=== PATIENT | female | born 1945 | race Caucasian/White ===

== ENCOUNTER 2017-07-10 14:54 | Inpatient (IN) ==
[2017-07-10] MEDS ORDERED: FentaNYL 100 MCG/2 ML INJECTION IVP ONE (15:04)
[2017-07-10] MEDS ORDERED: ONDANSETRON 4 MG/2 ML INJECTION IVP ONE (15:04)
--- OUTSIDE RECORDS SUMMARY | 2017-07-10 15:04 | External Medical Summary | Referral Summary ---
:1945 Author Organization [facility], [facility] Address [address] [place] [address] [place] [address] Care Team Providers Name Role Phone Hayden Kerr Primary Care Physician Encounter [facility] [id number] Date(s): 05/15/15 - 05/15/15 [facility] [address] [place] [address]- [place] Discharge Disposition: 01-Home or Self Care Attending Physician: Hayden Kerr MD Admitting Physician: Hayden Kerr MD Vital Signs Most recent to oldest [Reference Range]: 1 Blood Pressure [90-140/60-90 mmHg] 100/60 mmHg (05/15/15 8:09 AM) Problem List Condition Effective Dates Status Health Status Informant Allergies(Confirmed) Active Thyroid disease(Confirmed) Active Hypothyroidism(Confirmed) Active OP (osteoporosis) - Dr. Hilliard Active manages(Confirmed) Allergies, Adverse Reactions, Alerts No Known Allergies Medications Imodium A-D 2 mg, Oral, PRN every other day., 0 Refill(s) Start Date: 11/21/14 Status: Orderedlevothyroxine 75 mcg (0.075 mg) oral tablet 75 mcg 1 tabs, Oral, Daily, X 90 days, # 90 tabs, 1 Refill(s), Pharmacy: [facility], 1 tabs Oral Daily,x90 days Start Date: 05/15/15 Stop Date: 11/11/15 Status: OrderedProbiotic Formula 1 caps, Oral, Daily, 0 Refill(s) Start Date: 11/21/14 Status: Ordered Results Hematology Most recent to oldest [Reference Range]: 1 WBC [4.8-10.8 10*3/uL] 4.0 10*3/uL *LOW* (05/15/15 8:38 AM) RBC [4.00-5.20] 4.07 (05/15/15 8:38 AM) Hgb [12.0-16.0 gm/dL] 13.4 gm/dL (05/15/15 8:38 AM) Hct [37.0-47.0 %] 38.8 % (05/15/15 8:38 AM) MCV [82.0-99.0 fL] 95.3 fL (05/15/15 8:38 AM) MCH [27.0-32.0 pg] 32.9 pg *HI* (05/15/15 8:38 AM) MCHC [32.0-36.0 gm/dL] 34.5 gm/dL (05/15/15 8:38 AM) RDW [11.5-14.5 %] 12.2 % (05/15/15 8:38 AM) Platelet [150-400 10*3/uL] 278 10*3/uL (05/15/15 8:38 AM) MPV [8.8-14.8 fL] 9.5 fL (05/15/15 8:38 AM) Immature Granulocytes [0.0-1.0 %] 0.0 % (05/15/15 8:38 AM) Neutrophils [51-75 %] 39 % *LOW* (05/15/15 8:38 AM) Lymphocytes [20-46 %] 43 % (05/15/15 8:38 AM) Monocytes [4-11 %] 13 % *HI* (05/15/15 8:38 AM) Eosinophils [0-4 %] 4 % (05/15/15 8:38 AM) Basophils [0-2 %] 1 % (05/15/15 8:38 AM) Neutro Absolute [1.90-7.00 10*3] 1.56 10*3 *LOW* (05/15/15 8:38 AM) Lymph Absolute [0.80-3.30 10*3] 1.70 10*3 (05/15/15 8:38 AM) [place] Absolute [0.30-1.00 10*3] 0.52 10*3 (05/15/15 8:38 AM) Eos Absolute [0.00-0.50 10*3] 0.15 10*3 (05/15/15 8:38 AM) Baso Absolute [0.00-0.20 10*3] 0.03 10*3 (05/15/15 8:38 AM) Chemistry Most recent to oldest [Reference Range]: 1 Sodium Lvl [135-144 mEq/L] 141 mEq/L (05/15/15 8:38 AM) Potassium Lvl [3.5-5.2 mEq/L] 4.0 mEq/L (05/15/15 8:38 AM) Chloride [99-111 mEq/L] 105 mEq/L (05/15/15 8:38 AM) CO2 [22-31 mEq/L] 29 mEq/L (05/15/15 8:38 AM) AGAP [3-20] 7 (05/15/15 8:38 AM) BUN [10-20 mg/dL] 18 mg/dL (05/15/15 8:38 AM) Glucose Lvl [70-99 mg/dL] 105 mg/dL *HI* (05/15/15 8:38 AM) Creatinine Lvl [0.57-1.11 mg/dL] 0.84 mg/dL (05/15/15 8:38 AM) eGFR [>60 mL/min] >60 mL/min 1 (05/15/15 8:38 AM) Calcium Lvl [8.9-10.5 mg/dL] 9.4 mg/dL (05/15/15 8:38 AM) Albumin Lvl [3.4-4.8 gm/dL] 4.0 gm/dL (05/15/15 8:38 AM) Total Protein [6.2-8.1 gm/dL] 6.6 gm/dL (05/15/15 8:38 AM) Globulin [1.8-4.0 gm/dL] 2.6 gm/dL (05/15/15 8:38 AM) ALT [0-55 U/L] 25 U/L (05/15/15 8:38 AM) AST [5-34 U/L] 26 U/L (05/15/15 8:38 AM) Alk Phos [40-150 U/L] 56 U/L (05/15/15 8:38 AM) Bili Total [0.2-1.2 mg/dL] 0.6 mg/dL (05/15/15 8:38 AM) Chol [0-199 mg/dL] 233 mg/dL *HI* (05/15/15 8:38 AM) Trig [0-149 mg/dL] 80 mg/dL (05/15/15 8:38 AM) HDL [40-84 mg/dL] 67 mg/dL (05/15/15 8:38 AM) LDL [0-130 mg/dL] 150 mg/dL *HI* (05/15/15 8:38 AM) VLDL Cholesterol [0-28 mg/dL] 16 mg/dL (05/15/15 8:38 AM) Cardiac Risk [0.0-5.0] 3.5 (05/15/15 8:38 AM) TSH with Reflex Free T4 [0.35-4.94] 1.35 (05/15/15 8:38 AM) 1Result Comment: Multiply eGFR results by 1.21 for race. Immunizations No data available for this section Procedures Procedure Date Related Diagnosis Body Site Biopsy of breast1 Colonoscopy normal CS - section Thumb 1L breast Social History Social History Type Response Smoking Status Never smoker Assessment and Plan Extracted from: Title: Ambulatory Patient Education Author: Hayden Kerr MD Date: Family Medicine Hypothyroidism Hypothyroidism is a disorder of the thyroid. The thyroid is a large gland that is located in the lower front of the neck. The thyroid releases hormones that control how the body works. With hypothyroidi sm, the thyroid does not make enough of these hormones. CAUSES Causes of hypothyroidism may include: Viral infections. . Your own defense system (immune system) attacking your thyroid. Certain medicines. defects. Past radiation treatments to your head or neck. Past treatment with radioactive iodine. Past surgical removal of part or all of your thyroid. Problems with the gland that is located in the center of your brain ( pituitary). SIGNS AND SYMPTOMS Signs and symptoms of hypothyroidism may include: Feeling as though you have no energy (lethargy). Inability to tolerate cold. Weight gain that is not explained by a change in diet or exercise habits. Dry skin. Coarse hair. Menstrual irregularity. Slowing of thought processes. Constipation. Sadness or depression. DIAGNOSIS Your health care provider may diagnose hypothyroidism with blood tests and ultrasound tests. TREATMENT Hypothyroidism is treated with medicine that replaces the hormones that your body does not make. After you begin treatment, it may take several weeks for symptoms to go away. HOME CARE INSTRUCTIONS Take medicines only as directed by your health care provider. If you start taking any new medicines, tell your health care provider. Keep all follow-up visits as directed by your health care provider. This is important. As your condition improves, your dosage needs may change. You will need to have blood tests regularly so rishi t your health care provider can watch your condition. SEEK MEDICAL CARE IF: Your symptoms do not get better with treatment. You are taking thyroid replacement medicine and: You sweat excessively. You have tremors. You feel anxious. You lose weight rapidly. You cannot tolerate heat. You have emotional swings. You have diarrhea. You feel weak. SEEK IMMEDIATE MEDICAL CARE IF: You develop chest pain. You develop an irregular heartbeat. You develop a rapid heartbeat. This information is not intended to replace advice given to you by your health care provider. Make sure you discuss any questions you have with your health care provider. Document Released: 02/27/2006 Document Revised: 12/16/2014 Document Reviewed: 07/15/2014 [employer] Patient Information 2015 [employer]. No follow up information was provided. Extracted from: Title: Office Visit Note Author: Hayden Kerr MD Date: 05/15/15 Assessment/Plan Allergies This issue was reviewed, appears stable, and current therapy continued except as mentioned. Appropriate lab was reviewed from the most recent appropriate entry and lab was ordered if neede d in the cpoe/nursing orders, and follow up recommended generally in 90 days and no later then six months. Needs colonoscopy for screening. Hypothyroidism This issue was reviewed, appears stable, and current therapy continued except as mentioned. Appropriate lab was reviewed from the most recent appropriate entry and lab was ordered if needed in the cpoe/nursing orders, and follow up recommended generally in 90 days and no later then six months. Lab reviewed and lab pending. OP (osteoporosis) - Dr. Hilliard manages This issue was reviewed, appears stable , and current therapy continued except as mentioned. Appropriate lab was reviewed from the most recent appropriate entry a nd lab was ordered if needed in the cpoe/nursing orders, and follow up recommended generally in 90 days and no later then six months. Has had reclast in the past.
--- OUTSIDE RECORDS SUMMARY | 2017-07-10 15:04 | External Medical Summary | Referral Summary ---
:1945 Author Organization [facility] [address] [place] [address] Care Team Providers Name Role Phone Hayden Kerr Primary Care Physician Encounter [facility] [id number] Date(s): 11/10/16 - 11/10/16 [facility] [address] [place] [address] Discharge Diagnosis: OP (osteoporosis) - Dr. Hilliard manages Discharge Diagnosis: Hypothyroidism Discharge Diagnosis: N&V (nausea and vomiting) Discharge Diagnosis: Abnormal blood sugar Discharge Diagnosis: Thyroid disease Discharge Diagnosis: Hyperlipidemia Discharge Disposition: 01-Home or Self Care Attending Physician: Hayden Kerr MD Admitting Physician: Hayden Kerr MD Vital Signs Most recent to oldest [Reference Range]: 1 Blood Pressure [90-140/60-90 mmHg] 110/70 mmHg (11/10/16 9:59 AM) Problem List Condition Effective Dates Status Health Status Informant Allergies(Confirmed) Active Abnormal blood sugar(Confirmed) Active Thyroid disease(Confirmed) Active Hyperlipidemia(Confirmed) Active Hypothyroidism(Confirmed) Active OP (osteoporosis) - Dr. Hilliard Active manages(Confirmed) Allergies, Adverse Reactions, Alerts No Known Allergies Medications Imodium A-D 2 mg, Oral, PRN every other day., 0 Refill(s) Start Date: 11/21/14 Status: Orderedlevothyroxine 75 mcg (0.075 mg) oral tablet 75 mcg 1 tabs, Oral, Daily, # 90 tabs, 1 Refill(s), Pharmacy: [facility], 1 tabs Oral Daily Start Date: 08/18/16 Status: OrderedLipitor 10 mg oral tablet 10 mg 1 tabs, Oral, Daily, # 90 tabs, 1 Refill(s), Pharmacy: [facility], 1 tabs Oral Daily Start Date: 11/10/16 Status: OrderedProbiotic Formula 1 caps, Oral, Daily, 0 Refill(s) Start Date: 11/21/14 Status: Orderedseveral vitamins and supplements several vitamins and supplements, 0 Refill(s) Start Date: 10/12/16 Status: OrderedZofran 4 mg oral tablet 4 mg 1 tabs, Oral, q4hr, Nausea or Vomiting | as needed for nausea/vomiting, # 10 tabs, 0 Refill(s),Pharmacy: [facility], 1 tabs Oral q4hr,PRN:Nausea or Vomiting | as needed for nausea/vomiting Start Date: 10/12/16 Status: Ordered Procedures Procedure Date Related Diagnosis Body Site Biopsy of breast1 Colonoscopy normal CS - section Thumb 1L breast Social History Social History Type Response Smoking Status Never smoker entered on: 06/05/14 Assessment and Plan Extracted from: Title: Ambulatory Patient Education Author: Hayden Kerr MD Date: Preventive Health Cholesterol Cholesterol is a white, waxy, fat-like substance needed by your body in small amounts. The liver makes all the cholesterol you need. Cholesterol is carried from the liver by the blood through the blood vessels. Deposits of cholesterol (plaque) may build up on blood vessel goff. These make the arteries narrower and stiffer. Cholesterol plaques increase the risk for heart attack and stroke. You cannot feel your cholesterol level even if it is very high. The only way to know it is high is with a blood test. Once you know your cholesterol levels, you should keep a record of the test results. Work with your health care provider to keep your levels in the desired range. WHAT DO THE RESULTS MEAN? Total cholesterol is a rough measure of all the cholesterol in your blood. LDL is the so-called bad cholesterol. This is the type that deposits cholesterol in the goff of the arteries. You want this level to be low. HDL is the good cholesterol because it cleans the arteries and carries the LDL away. You want this level to be high. Triglycerides are fat that the body can either burn for energy or store. High levels are closely linked to heart disease. WHAT ARE THE DESIRED LEVELS OF CHOLESTEROL? Total cholesterol below 200. LDL below 100 for people at risk, below 70 for those at very high risk. HDL above 50 is good, above 60 is best. Triglycerides below 150. HOW CAN I LOWER MY CHOLESTEROL? Diet. Follow your diet programs as directed by your health care provider. Choose fish or white meat chicken and turkey, roasted or baked. Limit fatty cuts of red meat, fried foods, and processed meats, such as sausage and lunch meats. Eat lots of fresh fruits and vegetables. Choose whole grains, beans, pasta, potatoes, and cereals. Use only small amounts of olive, corn, or canola oils. Avoid butter, mayonnaise, shortening, or palm kernel oils. Avoid foods with trans fats. Drink skim or nonfat milk and eat low-fat or nonfat yogurt and cheeses. Avoid whole milk, cream, ice cream, egg yolks, and full-fat cheeses. Healthy desserts include reggie food cake, baltazar snaps, animal crackers, hard candy, popsicles, and low-fat or nonfat frozen yogurt. Avoid pastries, cakes, pies, and cookies. Exercise. Follow your exercise programs as directed by your health care provider. A regular program helps decrease LDL and raise HDL. A regular program helps with weight control. Do things that increase your activity level like gardening, walking, or taking the stairs. Ask your health care provider about how you can be more active in your daily life. Medicine. Take medicine only as directed by your health care provider. Medicine may be prescribed by your health care provider to help lower cholesterol and decrease the risk for heart disease. If you have several risk factors, you may need medicine even if your levels are normal. This information is not intended to replace advice given to you by your health care provider. Make sure you discuss any questions you have with your health care provider. Document Released: 11/22/2001 Document Revised: 03/20/2015 Document Reviewed: 12/11/2013 [employer] Interactive Patient Education 2016 [employer] No follow up information was provided. Extracted from: Title: Office Visit Note Author: Hayden Kerr MD Date: 11/10/16 Abnormal blood sugar This issue was reviewed, appears stable, and current therapy continued except as mentioned. Appropriate lab was reviewed from the most recent appropriate entry and lab was ordered if needed in the cp oe/nursing orders, and follow up recommended generally in 90 days and no later then six months. Lab stable. Hyperlipidemia Much discussion. Trial of lipitor 10mg po daily was decided. RTC in 90 days for a recheck or sooner prn. Diet and exercise as tolerated and feasible. Consider medication when interested. Hypothyroidism This issue was reviewed, appears stable, and current therapy continued except as mentioned. Appropriate lab was reviewed from the most recent appropriate entry and lab was ordered if needed in the cp oe/nursing orders, and follow up recommended generally in 90 days and no later then six months. Lab stable. N&V (nausea and vomiting) The patient's issue is nearly or completely resolved. There is no further issues or testing desired by them at this time. OP (osteoporosis) - Dr. Hilliard manages This issue was reviewed, appears stable, and current therapy continued except as mentioned. Appropriate lab was reviewed from the most recent appropriate entry and lab was ordered if needed in the cp oe/nursing orders, and follow up recommended generally in 90 days and no later then six months. Thyroid disease This issue was reviewed, appears stable, and current therapy continued except as mentioned. Appropriate lab was reviewed from the most recent appropriate entry and lab was ordered if needed in the cp oe/nursing orders, and follow up recommended generally in 90 days and no later then six months."
--- OUTSIDE RECORDS SUMMARY | 2017-07-10 15:04 | External Medical Summary | Referral Summary ---
:1945 Author [facility] Address [address] [place] [address] [place] [address] Care Team Providers Name Role Phone Hayden Kerr Fausto Primary Care Physician Encounter [facility] [id number] Date(s): 11/21/14 - 11/21/14 [facility] [address] [place] [address] [place] Discharge Diagnosis: Hypothyroidism Discharge Diagnosis: DIARRHEA Discharge Diagnosis: Allergy, unspecified not elsewhere classified Discharge Diagnosis: Frequent loose stools Discharge Disposition: 01-Home or Self Care Attending Physician: Lyn Jackson APRN Admitting Physician: Lyn Jackson APRN Vital Signs Most recent to oldest [Reference Range]: 1 Temperature Tympanic [36.6-38.1 degC] 36.8 degC (11/21/14 10:26 AM) Peripheral Pulse Rate [60-100 bpm] 72 bpm (11/21/14 10:26 AM) Blood Pressure [90-140/60-90 mmHg] 100/62 mmHg (11/21/14 10:26 AM) Problem List Condition Effective Dates Status [...] days, # 90 tabs, 1 Refill(s), Pharmacy: [facility], 1 tabs Oral Daily,x90 days Start Date: 05/15/15 Stop Date: 11/11/15 Status: OrderedProbiotic Formula 1 caps, Oral, Daily, 0 Refill(s) Start Date: 11/21/14 Status: Ordered Results No data available for this section Immunizations No data available for this section Procedures Procedure Date Related Diagnosis Body Site Biopsy of breast1 Colonoscopy normal CS - section Thumb 1L breast Social History Social History Type Response Smoking Status Never smoker Assessment and Plan Extracted from: Title: Office Visit Note-loose stools Author: Lyn Jackson CONSIGNEE Date: Assessment/Plan 1.Frequent loose stools Discussed with patient initial workup for loose tools. Lab and stool cultures as ordered. Recommend colonoscopy per Dr. Arenas. She has fast-track package at home and will bring it back next week. Continue the probiotic daily. Continue Imodium as she has been taking. For now we'll wait to add more fiber to the diet as that can cause more bloating and looser stools. Flu shot this fall if she desires.. Not interested in Pneumovax or Zostivax. Ordered: CBC w/ Differential Comprehensive Metabolic Panel Fecal Leucocyte Stain Lipid Panel Office Visit Level 4 Est 67450 Ova and Parasites Allergy, unspecified not elsewhere classified Ordered: Office Visit Level 4 Est 41963 Hypothyroidism Ordered: Office Visit Level 4 Est 95504 TSH with Reflex Free T4
--- OUTSIDE RECORDS SUMMARY | 2017-07-10 15:04 | External Medical Summary | Referral Summary ---
:1945 Author Organization [facility] [address] [place] [address] Care Team Providers Name Role Phone Hayden Kerr Primary Care Physician [facility]counter [facility] [id number] Date(s): 10/12/16 - 10/12/16 [facility] [address] [place] [address] [place] Discharge Diagnosis: Nausea and vomiting Discharge Diagnosis: Thyroid disease Discharge Diagnosis: Hyperlipidemia Discharge Diagnosis: Abnormal blood sugar Discharge Diagnosis: BPPV (benign paroxysmal positional vertigo) Discharge Disposition: 01-Home or Self Care Attending Physician: Vale Marcus PA-C Admitting Physician: Vale Marcus PA-C Vital Signs Most recent to oldest [Reference Range]: 1 Temperature Tympanic [36.6-38.1 degC] 36.5 degC *LOW* (10/12/16 2:28 PM) Peripheral Pulse Rate [60-100 bpm] 95 bpm (10/12/16 2:28 PM) Blood Pressure [90-140/60-90 mmHg] 104/66 mmHg (10/12/16 2:28 PM) SpO2 96 % (10/12/16 2:28 PM) Problem List Condition Effective Dates Status Health [...] Daily, # 90 tabs, 1 Refill(s), Pharmacy: [facility], 1 tabs Oral Daily Start Date: 08/18/16 Status: OrderedProbiotic Formula 1 caps, Oral, Daily, [...] and Plan Extracted from: Title: Office Visit Note- Dizziness Author: Vale Marcus PA-C Date: Abnormal blood sugar She would like to do her labs when she is fasting. I will put lab orders in, and she is to make appt for med ck and to review. Ordered: Comprehensive Metabolic Panel Office Visit Level 3 Est 51833 BPPV (benign paroxysmal positional vertigo) D/w pt that this appears to be BPPV. Encouraged to continue with Meclizine, which she can acquire OTC. Ialso recommended Perez Maneuver as well, and she will look up how to do this. Also may try Flon ase nasal spray for her allergy sx. RTC if dizziness is not improving for further workup. She wants to do lab when she is fasting. Ordered: CBC w/ Differential Comprehensive Metabolic Panel Office Visit Level 3 Est 04637 Hyperlipidemia Will check fasting lipids. Needs med ck after this. Pt to schedule. Ordered: CBC w/ Differential Comprehensive Metabolic Panel Lipid Panel Office Visit Level 3 Est 45652 Nausea and vomiting Will send outZofran for her to useprn N/V. None today. Ordered: ondansetron, 4 mg 1 tabs, Oral, q4hr, Nausea or Vomiting | as needed for nausea/vomiting, # 10 tabs, 0 Refill(s), Pharmacy: [facility], 1 tabs Oral q4hr ,PRN:Nausea or Vomiting | as needed for nausea/vomiting CBC w/ Differential Office Visit Level 3 Est 55757 Thyroid disease H/o hypothyroidism, and needs med ck. Will check TSH with her fasting labs. Ordered: Office Visit Level 3 Est 27313 TSH with Reflex Free T4"
--- NOTE | 2017-07-10 15:08 | Emergency Department Report ---
Fall HPI - General Chief Complaint: Fall Stated Complaint: FALL Source: patient Mode of arrival: EMS Limitations: no limitations - History of Present Illness HPI Narrative: Pt presents after she tripped on a hose and fell resulting in right anklw pain. Pt felt a popping sensation at the time of the incident which occurred just prior to arrival. Pt denies head, neck, or back pain MD complaint: fall Onset (ago): minute(s) Fall from: standing, down stairs (#) Fall witnessed: no Place fall occurred: home Loss of consciousness: none Symptoms prior to fall: none Context: tripped/slipped - Related Data Home Medications Medication Instructions Recorded Confirmed Lipitor (atorvastatin) 10 mg tablet 10 mg PO HS 90 Days #04/15/17 07/10/17 levothyroxine 75 mcg tablet 75 mcg PO DAILY 90 Days #04/15/17 07/10/17 Allergies Allergy/AdvReac Type Severity Reaction Status Date / Time No Known Allergies Allergy Verified 04/15/17 11:26 Review of Systems All systems: reviewed and negative except as stated Constitutional: Reports: as per HPI Musculoskeletal: Reports: as per HPI PFSH Patient Stated Medical History Other Respiratory Yes: [facility] Medical History (Last Updated 04/15/17 @ 11:31 by GUY Howe) HTN (hypertension) (Acute Medical) Hypothyroid (Acute Medical) Surgical History: * None Family History: Family History (Last Updated 04/15/17 @ 11:32 by GUY Howe) Other No significant family history - Social History Smoking status: Never smoker Substance use type: does not use Alcohol intake frequency: does not drink Physical Exam - Limitations Limitations: no limitations - General General appearance: alert, in no apparent distress - Normal Exams: Neck:: Full range of motion, without adenopathy Chest/Respirations:: Clear all ramirez, with good airflow Cardiovascular:: Regular rate and rhythm, without murmur or gallop, Pulses 2+ all extremities, capillary refill, <2 seconds all extremities Abdomen:: Bowel sounds positive, soft, non-tender, non-distended Integumentary:: No rashes Neurological:: Patient is alert, and oriented, cranial nerves, motor/sensory/ cerebellar, exams w/o gross deficits, to observation Psychiatric:: Patient exhibits, appropriate attention, emotion and affect - Expanded Lower Extremity Exam right Ankle exam: Present: tenderness, deformity (palpable DP) Foot/toe exam: Present: normal inspection, full ROM Course Vital Signs Temperature 98.5 F 07/10/17 14:54 Pulse Rate 86 07/10/17 14:54 Respiratory Rate 16 07/10/17 14:54 Blood Pressure 138/68 07/10/17 14:54 Pulse Oximetry 95 07/10/17 14:54 Temperature 98.5 F 07/10/17 14:54 Pulse Rate 68 07/10/17 15:30 Respiratory Rate 16 07/10/17 14:54 Blood Pressure 138/68 07/10/17 14:54 Pulse Oximetry 92 07/10/17 15:30 Fall - [facility] Narrative Medical decision making narrative: After review of X ray. Ortho notified of results and present at bedside for reduction. Pt will be admitted observation by ortho post successful reduction. Findings and plan discussed with pt and family who voice understanding. - Differential Diagnosis Likely: compression fracture (ankle fracture, ankle dislocation) - Radiology Data Attestation: I reviewed the patient's radiology results. (Fracture dislocation per Dr Reagan) Disposition Clinical Impression: Fracture, ankle Qualifiers: Encounter type: initial encounter Fracture type: closed Laterality: right Qualified Code(s): S82.891A - Other fracture of right lower leg, initial encounter for closed fracture Disposition: To [facility] Condition: Improved Prescriptions: No Action levothyroxine 75 mcg tablet 75 mcg PO DAILY 90 Days #90 Lipitor (atorvastatin) 10 mg tablet 10 mg PO HS 90 Days #90 Referrals: Hayden Kerr MD [Primary Care Provider] - - Seen By: midlevel
[2017-07-10] MEDS ORDERED: SALINE FLUSH 10ml SYRINGE IVF PRN ×2 (15:16→15:46)
--- NOTE | 2017-07-10 15:53 | XRay Report ---
EXAM: XR ankle RT min 3V LOCATION OF DICTATION: [facility] HISTORY: fall, deformity COMPARISON: No prior studies available for comparison. FINDINGS: Acute transverse moderately displaced fracture about the base of the medial malleolus. Acute moderately displaced oblique fracture involving the proximal aspect of the lateral malleolus. There is lateral dislocation at the tibiotalar articulation. Moderate soft tissue swelling surrounding the ankle joint. Impression Acute moderately displaced medial and lateral malleolus fractures and associated 2.4 cm lateral dislocation of the tibiotalar articulation. .
[2017-07-10] MEDS ORDERED: MORPHINE SULFATE 2mg INJ IVP ONE (16:09)
[2017-07-10] MEDS ORDERED: MORPHINE SULFATE 4mg INJECTION IVP ONE (16:30)
[2017-07-10] MEDS ORDERED: LIDOCAINE 1% (10mg/ml) 30ml SDV INJ INFIL ONE (16:51)
--- NOTE | 2017-07-10 17:13 | Orthopedic History & Physical ---
Orthopedic HPI - HPI Comments Rita was out gardening this afternoon and tripped over her hose and fell. She had instant pain of the right ankle with obvious deformity. Transported by EMS to [facility] ER. Xrays obtained showing bimalleolar fracture dislocation of the ankle. Ortho was consulted, and the right ankle was reduced in the ER by Dr. Rivera. [facility] Patient Stated Medical History Other Respiratory Yes: [facility] Medical History (Last Updated 04/15/17 @ 11:31 by GUY Howe) HTN (hypertension) (Acute Medical) Hypothyroid (Acute Medical) Hyperlipidemia Surgical History: * None Family History: Family History (Last Updated 04/15/17 @ 11:32 by GUY Howe) Other No significant family history - Social History Smoking status: Never smoker Substance use type: does not use Alcohol intake frequency: does not drink Housing: house Household members: spouse Does patient use chewing tobacco?: No Review of Systems - Constitutional Constitutional: Absent: chills, fatigue, fever(s) - Cardiovascular Cardiovascular: Absent: chest pain, palpitations, syncope - Respiratory Respiratory: Absent: cough, dyspnea - Gastrointestinal Gastrointestinal: Absent: abdominal pain, nausea, vomiting - Musculoskeletal Musculoskeletal: Present: as per HPI - Integumentary/Breasts Integumentary: Present: as per HPI Medications Home Medications Medication Instructions Recorded Confirmed Type Lipitor (atorvastatin) 10 mg tablet 10 mg PO HS 90 Days #90 04/15/17 07/10/17 History levothyroxine 75 mcg tablet 75 mcg PO DAILY 90 Days #90 04/15/17 07/10/17 History Allergies Allergy/AdvReac Type Severity Reaction Status Date / Time No Known Allergies Allergy Verified 04/15/17 11:26 Exam - Constitutional Vital Signs: Temperature 98.5 F 07/10/17 14:54 Pulse Rate 68 07/10/17 15:30 Respiratory Rate 16 07/10/17 14:54 Blood Pressure 138/68 07/10/17 14:54 Pulse Oximetry 92 07/10/17 15:30 General: cooperative, no acute distress, well developed, well groomed Orientation: alert, oriented x3 - Psych Mood: normal Attitude: cooperative - RLE General: edema Skin: ecchymosis, other (Tinting of medial ankle with pressure from ankle dislocation, resolved after reduction with moderate swelling) Ankle Range of Motion: other (ROM not performed due to bimalleolar dislocation fracture) Neurological: no deficits, normal to light touch Vascular: dorsalis pedis pulse within normal limits, capillary refill <2 seconds - Cast/Brace Cast/Brace Side: right Cast/Brace Type: other (short leg posterior and stirrup splint) Condition: exposed digits with good ROM and capillary refill - Respiratory Respiratory Exam: non-labored - Cardiac Cardiovascular exam: pedal pulses intact Orthopedic Assessment and Plan (1) Bimalleolar fracture of right ankle Status: Acute Assessment and Plan: Patient admitted for pain control and observation tonight. If swelling improved in the morning will plan ORIF of right ankle tomorrow afternoon. SCDs for DVT prevention sips/chips after midnight with clear liquid breakfast, NPO after 0900. Hospital Course Summary Disclaimer: The visit summary below is not to be considered part of the above Progress Note.
[2017-07-10 17:51] VITALS: BMI 26.9
[2017-07-10] MEDS ORDERED: MORPHINE SULFATE 10 MG/ML VIAL IVP PRN (17:59)
[2017-07-10] MEDS: NS 1,000 ML IV SCH (18:04)
[2017-07-10] MEDS: ATORVASTATIN 10 MG TABLET PO SCH (21:49)
[2017-07-10] MEDS: HYDROCODONE/APAP 7.5 MG/325 MG TABLET PO PRN (22:32)
[2017-07-11] MEDS: LEVOTHYROXINE 75 MCG TABLET PO SCH (05:30)
[2017-07-11] MEDS: HYDROCODONE/APAP 7.5 MG/325 MG TABLET PO PRN (06:18)
[2017-07-11] MEDS: NS 1,000 ML IV SCH (06:20)
--- NOTE | 2017-07-11 08:14 | Procedure Note ---
DATE OF PROCEDURE 07/10/2017 PREPROCEDURE DIAGNOSIS Right ankle bimalleolar dislocation. POSTPROCEDURE DIAGNOSIS Right ankle bimalleolar dislocation. PROCEDURE Closed reduction of right ankle. SURGEON Too Rivera MD ANESTHESIA Local with IV morphine. DESCRIPTION OF PROCEDURE Mrs. Rios and her right ankle were identified. She had obvious deformity to the right ankle with tenting of the skin medially which was a white and blanched dislocation. She just received IV morphine from the ER staff. I used a 22 gauge needle to inject 7 mL of 1% lidocaine into the ankle joint through a medial approach. She tolerated this well. After letting it set up for 30 seconds to a minute, I performed a reduction maneuver to the right ankle by slowly and gently bringing the displaced foot from a lateral position back underneath the tibia. There was a satisfying pop and her deformity was resolved as well as the tenting of the skin medially. She tolerated this very well and was able to move her toes afterwards and had good sensation in her toes. The ankle was heled reduced while we placed a well-padded posterior slab and sugar- tong type splint. Postreduction x-rays will be obtained. JEAN MARIE
--- NOTE | 2017-07-11 08:20 | Orthopedic Progress Note ---
Date: Date: 07/11/17 Time: 815 Subjective/Severity of Illness: Rita is lying in bed this morning when I visit. States she did well overnight, pain has been controlled with [place]. Has had strict elevation with ice of right ankle. Denies any CP, SOA, nausea. Exam - Constitutional Vital Signs: Temperature 97.1 F 07/11/17 07:43 Pulse Rate 69 07/11/17 07:43 Respiratory Rate 16 07/11/17 07:43 Blood Pressure 106/64 07/11/17 07:43 Pulse Oximetry 94 07/11/17 07:43 General: cooperative, no acute distress, well developed, well groomed Orientation: alert, oriented x3 - RLE General: edema Postoperative Appearance: extremity compartments are soft and nontender, neurovascullary intact to extremities Neurological: no deficits Vascular: dorsalis pedis pulse within normal limits - Cast/Brace Cast/Brace Side: right Cast/Brace Type: other (posterior short leg splint and stirrup splint) Condition: in good condition without signs of skin ulceration, shows normal signs of wear, exposed digits with good ROM and capillary refill - Respiratory Respiratory Exam: non-labored - Cardiac Cardiovascular exam: pedal pulses intact - Labs Result Diagrams: 07/10/17 19:19 07/10/17 19:19 Abnormal lab results 07/10/17 07/10/17 Range/Units 19:19 19:19 RBC 3.86 L (4.00-5.20) M/MM3 Neut % (Auto) 69.8 H (33-66) % Sodium 147 H (134-144) MEQ/L Chloride 109 H (98-107) MEQ/L BUN 18.0 H (7-17) MG/DL Glucose 117 H (65-110) MG/DL Calculated Osmolality 285 H (261-280) MOSM/KG H & H 07/10/17 Range/Units 19:19 Hgb 12.7 (12-16) GM/DL Hct 37.8 (36-46) % Orthopedic Assessment and Plan (1) Bimalleolar fracture of right ankle Status: Acute Assessment and Plan: Swelling minimal this morning and will proceed with ORIF of ankle today. Risks and expectation of surgery discussed, including risk of infection, DVT, ext SCDs for DVT prevention, will add ASA 81mg BID x 6 weeks post op Clear liquid breakfast, NPO after 0900. Hospital Course Summary Disclaimer: The visit summary below is not to be considered part of the above Progress Note.
--- NOTE | 2017-07-11 08:38 | XRay Report ---
Indication: post reduction PROCEDURE: XR ankle RT min 3V: Encounter: Initial Comparison: Ankle radiographs from earlier on the same date Findings/ Impression: Interval closed reduction of the ankle fracture dislocation with improved alignment of the medial and lateral malleolar fractures. Reduction of the talus as well. Overlying splinting material obscuring fine bony detail. .
[2017-07-11] MEDS ORDERED: ONDANSETRON 4 MG/2 ML INJECTION IVP PRN ×2 (13:36→17:52)
[2017-07-11] MEDS: LR 1,000 ML IV SCH ×2 (14:36→16:25)
[2017-07-11] MEDS ORDERED: LIDOCAINE 1% (10mg/ml) 30ml SDV INJ ONE ×2 (14:38→15:41)
[2017-07-11] MEDS ORDERED: CEFAZOLIN 1 G INJECTION IVP ONE (14:48)
--- NOTE | 2017-07-11 15:39 | Anesthesia Preoperative Report ---
Anesthesia Preoperative Record - Date and Time Date: 07/11/17 Preoperative Diagnosis: Ankle ORIF NPO Since Date: 07/11/17 NPO Since Time: 09:00 (sam) Allergies/Adverse Reactions: Allergies Allergy/AdvReac Type Severity Reaction Status Date / Time No Known Allergies Allergy Verified 04/15/17 11:26 - Vital Signs Vital Signs: Temperature 98.2 F 07/11/17 14:20 Pulse Rate 72 07/11/17 14:25 Respiratory Rate 18 07/11/17 14:20 Blood Pressure 119/64 07/11/17 14:20 Pulse Oximetry 95 07/11/17 14:20 - Medications Inpatient Medications: Current Medications Hydrocodone Bitart/Acetaminophen ([place] 7.5/325) 1 - 2 tab PO Q4H PRN PRN Reason: Pain Last Admin: 07/11/17 06:18 Dose: 2 tab Atorvastatin Calcium (Lipitor) 10 mg PO HS TAMIA Last Admin: 07/10/17 21:49 Dose: Not Given Sodium Chloride (Normal Saline) 1,000 mls @ 75 mls/hr IV .[id number] TAMIA Last Infusion: 07/11/17 14:10 Dose: 0 mls/hr Lactated Ringer's (Lactated Ringers) 1,000 mls @ 50 mls/hr IV .Q20H TAMIA Last Admin: 07/11/17 14:36 Dose: 50 mls/hr Levothyroxine Sodium (Synthroid) 75 mcg PO ACB TAMIA Last Admin: 07/11/17 05:30 Dose: Not Given Morphine Sulfate (Morphine Sulfate Vial) 2 - 10 mg IVP Q1H PRN PRN Reason: Pain Ondansetron HCl (Zofran) 4 mg IVP Q6H PRN PRN Reason: Nausea &/or vomiting Last Admin: 07/11/17 14:06 Dose: 4 mg Sodium Chloride (Iv Flush) 10 ml IVF PRN PRN PRN Reason: Flushing Last Admin: 07/10/17 15:00 Dose: 10 ml Sodium Chloride (Iv Flush) 10 - 80 ml IVF PRN PRN PRN Reason: Flushing Home Medications: Home Medications Medication Instructions Recorded Confirmed Type Lipitor (atorvastatin) 10 mg tablet 10 mg PO HS 90 Days #90 04/15/17 07/10/17 History levothyroxine 75 mcg tablet 75 mcg PO DAILY 90 Days #90 04/15/17 07/10/17 History Is Patient on Beta Brian?: No - Medical History Respiratory: Reports: Other (SEASONAL ALLERGIES) DENIES: Sleep Apnea Cardiovascular: Reports: High Cholesterol Neuro/Musculoskeletal: Reports: Back Problems Renal/Endocrine: Reports: Thyroid Disease Other History: DENIES: Anesthesia Reactions - Surgical History HEENT Surgeries: Reports: Tonsillectomy (10 YEARS OLD) Reproductive Surgery/Treatment: Reports: Section (X1) Anesthesia Reactions: None Hx Family Anesthesia Reaction: No History of Motion Sickness: No - Social History Smoking Status: Never smoker Hx Chewing Tobacco Use: No Substance Use Type: does not use Alcohol Intake Frequency: does not drink - Pertinent Findings EKG: Sinus Rhythm - Physical Exam Respiratory Exam: Present: lungs clear, bilateral breath sounds equal Cardiovascular Exam: Present: regular rate and rhythm - Airway Assessment Mallampati Score: II TMD: 3 Fingerbreadths Neck Extension: good Overall Assessment: no airway concerns - ASA ASA Score: 2 - Plan Anesthesia: General TIVA, General Inhalation Gases, Neuroaxial Peripheral Nerve Block: Popliteal-Right - Discussion Discussion: Discussed risks/options/alternatives of anesthesia and questions answered. Patient consents. Nursing pain assessment noted. Attestation Statement: Prior to the delivery of any anesthetic medication, I examined the patient, developed the plan, obtained the patient's consent and discussed the risk and benefits of the procedure with the patient/guardian. - Additional Information Seen by Anesthesia: Yes
[2017-07-11] MEDS ORDERED: BUPIVACAINE 0.25% (2.5mg/ml) PF 30ml INJECTION ONE (15:41)
[2017-07-11] MEDS ORDERED: PROPOFOL 500 MG/50 ML VIAL ONE (15:45)
[2017-07-11] MEDS ORDERED: KETAMINE 500 MG/10 ML INJECTION ONE (15:45)
[2017-07-11] MEDS ORDERED: FentaNYL 250 MCG/5 ML INJECTION ONE (15:45)
[2017-07-11] MEDS ORDERED: MIDAZOLAM 2mg/2ml INJECTION ONE (15:45)
[2017-07-11] MEDS ORDERED: DEXAMETHASONE 4 MG/ML INJECTION ONE (15:56)
[2017-07-11] MEDS ORDERED: ONDANSETRON 4 MG/2 ML INJECTION ONE (15:56)
[2017-07-11] MEDS ORDERED: BUPIV 0.25% 30ml/LIDO 1% 30ml MIXTURE ID ONE (16:15)
[2017-07-11] MEDS ORDERED: FentaNYL 100 MCG/2 ML INJECTION IVP PRN (16:47)
--- NOTE | 2017-07-11 16:56 | Remote Fluorsocopy Report ---
Indication: ORIF RIGHT ANKLE PROCEDURE: RF ankle RT 2 view: Encounter: Initial Comparison: Ankle radiographs from yesterday Findings: Four fluoroscopic spot images are submitted for interpretation. Images show open reduction and internal fixation of the distal tibial and fibular fractures with placement of two partially threaded cannulated leg screws across the medial malleolus and a lateral side plate and screws across the distal fibula with improved alignment of the fracture fragments. Impression: Fluoroscopy as above. Fluoroscopy time is 60.4 seconds. Fluoroscopy dose is 216 mRad. .
--- NOTE | 2017-07-11 17:24 | Anesthesia Procedure Note ---
Peripheral Nerve Blockade - Procedure Physician: Too Rivera MD Date: 07/11/17 Surgical Procedure: right ankle fx Discussion: Discussed risks/options/alternatives of anesthesia and questions answered. Patient consents. Nursing pain assessment noted. Block Start: 14:56 Block Stop: 17:02 Blocked Employed: Popliteal Indication: Post-Operative Pain Approach: Right Side Confirmed Position: Supine Patient: Consent, Risks/Benefits Discussed, Informed, Post Block Act. Discussed IV Sedation: No Initial Vital Signs: Temperature 98.5 F 07/10/17 14:54 Temperature Source Oral 07/10/17 14:54 Sepsis Recent Fever Within 48 Hours No 07/10/17 14:54 Sepsis Suspicion of Infection No 07/10/17 14:54 Sepsis New/Unexplained Change in Mental Status No 07/10/17 14:54 Sepsis Score/Level No Definite Risk 07/10/17 14:54 Sepsis Action Taken by Nursing No Action 07/10/17 14:54 Pulse Rate 86 07/10/17 14:54 Respiratory Rate 16 07/10/17 14:54 Respiratory Effort Non-Labored 07/10/17 14:54 Respiratory Depth Normal 07/10/17 14:54 Respiratory Pattern 07/10/17 14:54 Blood Pressure 138/68 07/10/17 14:54 Blood Pressure Mean 91 07/10/17 14:54 Blood Pressure Position Sitting 07/10/17 14:54 Pulse Oximetry 95 07/10/17 14:54 Oxygen Delivery Method 07/10/17 14:54 Post Vital Signs: Temperature 98.2 F 07/11/17 14:20 Pulse Rate 72 07/11/17 14:25 Respiratory Rate 18 07/11/17 14:20 Blood Pressure 119/64 07/11/17 14:20 Pulse Oximetry 95 07/11/17 14:20 Initial Pain Pain Score: 0 Post Block Pain Score: 0 Prep: Chlorhexadine/ETOH - Injectate Ropivacaine (%): 0.5 Ropivacaine (mL): 7 Lidocaine (%): 1 Lidocaine (mL): 8 Was Epi 1:200,000 Used?: No Injection: Injection made incrementally with constant monitoring and aspiration every ml
--- NOTE | 2017-07-11 17:26 | Anesthesia Procedure Note ---
Peripheral Nerve Blockade - Procedure Physician: Too Rivera MD Date: 07/11/17 Surgical Procedure: right ankle fx Discussion: Discussed risks/options/alternatives of anesthesia and questions answered. Patient consents. Nursing pain assessment noted. Block Start: 17:03 Block Stop: 17:09 Blocked Employed: Adductor Canal Indication: Post-Operative Pain Approach: Right Side Confirmed Position: Supine Patient: Consent, Risks/Benefits Discussed, Informed, Post Block Act. Discussed Initial Vital Signs: Temperature 98.5 F 07/10/17 14:54 Temperature Source Oral 07/10/17 14:54 Sepsis Recent Fever Within 48 Hours No 07/10/17 14:54 Sepsis Suspicion of Infection No 07/10/17 14:54 Sepsis New/Unexplained Change in Mental Status No 07/10/17 14:54 Sepsis Score/Level No Definite Risk 07/10/17 14:54 Sepsis Action Taken by Nursing No Action 07/10/17 14:54 Pulse Rate 86 07/10/17 14:54 Respiratory Rate 16 07/10/17 14:54 Respiratory Effort Non-Labored 07/10/17 14:54 Respiratory Depth Normal 07/10/17 14:54 Respiratory Pattern 07/10/17 14:54 Blood Pressure 138/68 07/10/17 14:54 Blood Pressure Mean 91 07/10/17 14:54 Blood Pressure Position Sitting 07/10/17 14:54 Pulse Oximetry 95 07/10/17 14:54 Oxygen Delivery Method 07/10/17 14:54 Post Vital Signs: Temperature 98.2 F 07/11/17 14:20 Pulse Rate 72 07/11/17 14:25 Respiratory Rate 18 07/11/17 14:20 Blood Pressure 119/64 07/11/17 14:20 Pulse Oximetry 95 07/11/17 14:20 Initial Pain Pain Score: 0 Post Block Pain Score: 0 Prep: Chlorhexadine/ETOH Ultrasound Used?: Yes - Injectate Ropivacaine (%): 0.5 Ropivacaine (mL): 8 Lidocaine (%): 1 Lidocaine (mL): 7 Injection: Injection made incrementally with constant monitoring and aspiration every ml
--- NOTE | 2017-07-11 17:26 | Anesthesia Postoperative Note ---
- Date and Time Date: 07/11/17 Time: 17:28 - Status Patient Participated in Evaluation: Patient Participated in Person Vital Signs: Temperature 98.2 F 07/11/17 14:20 Pulse Rate 72 07/11/17 14:25 Respiratory Rate 18 07/11/17 14:20 Blood Pressure 119/64 07/11/17 14:20 Pulse Oximetry 95 07/11/17 14:20 Respiratory Function: Airway Patent EKG: Sinus Rhythm Mental Status: Lethargic Pain Intensity: 0 Hydration: IV Infusing Complications During Recover: None Apparent - Follow-Up Instructions Instructions: Per Surgeon
[2017-07-11] MEDS ORDERED: SENNA + DOCUSATE TABLET PO PRN (17:52)
[2017-07-11] MEDS ORDERED: MAG-AL + SIM ORAL LIQUID 30ml PO PRN (17:52)
[2017-07-11] MEDS ORDERED: NOZIN NASAL SWAB NAS ONE (17:52)
[2017-07-11] MEDS ORDERED: LORazepam 1 MG TABLET PO PRN (17:52)
[2017-07-11] MEDS: NOZIN NASAL SWAB NAS SCH (17:56)
[2017-07-11] MEDS: ATORVASTATIN 10 MG TABLET PO SCH (21:40)
[2017-07-11] MEDS: ASPIRIN 81 MG CHEWABLE TABLET PO SCH (21:40)
[2017-07-11] MEDS: CEFAZOLIN 1 G in NS 100 ML IV SCH (23:44)
[2017-07-12] MEDS: NOZIN NASAL SWAB NAS SCH ×3 (02:13→11:01)
[2017-07-12] MEDS: HYDROCODONE/APAP 7.5 MG/325 MG TABLET PO PRN ×4 (03:31→14:42)
[2017-07-12] MEDS: LEVOTHYROXINE 75 MCG TABLET PO SCH (06:34)
[2017-07-12 07:34] VITALS: RESP 16
--- NOTE | 2017-07-12 08:11 | Orthopedic Progress Note ---
Date: Date: 07/12/17 Time: 757 Subjective/Severity of Illness: Doing very well this AM. Lawrence is working for pain relief. She has not been out of bed yet. PT is ordered for this AM. Denies CP, cough or SOA. No numbness or tingling of toes. Hgb 12.3 , Glucose 129. Orthopedic Exam Vital signs: Temperature 96.3 F L 07/12/17 07:33 Pulse Rate 86 07/12/17 07:33 Respiratory Rate 16 07/12/17 07:33 Blood Pressure 114/74 07/12/17 07:33 Pulse Oximetry 95 07/12/17 07:33 - Constitutional General Appearance: Present: alert, cooperative, no acute distress - Respiratory Exam Present: non-labored - Cardiovascular Exam Capillary Refill: < 2-3 Seconds - Extremities Exam Present: normal capillary refill. Absent: cyanosis - Integumentary Exam Present: pink, warm, dry - Neurological Exam Present: intact to light touch, no deficits - Psychiatric Exam Present: alert, normal affect - Labs Result Diagrams: 07/12/17 04:04 07/12/17 04:04 Abnormal lab results 07/12/17 07/12/17 Range/Units 04:04 04:04 RBC 3.77 L (4.00-5.20) M/MM3 Neut % (Auto) 81.2 H (33-66) % Lymph % (Auto) 12.3 L (23-45) % Glucose 129 H (65-110) MG/DL H & H 07/12/17 Range/Units 04:04 Hgb 12.3 (12-16) GM/DL Hct 37.1 (36-46) % Orthopedic Assessment and Plan (1) Bimalleolar fracture of right ankle Status: Acute Qualifiers: Encounter type: initial encounter Fracture type: closed Qualified Code(s) : S82.841A - Displaced bimalleolar fracture of right lower leg, initial encounter for closed fracture Assessment and Plan: Rita is doing well this AM. Lawrence is working for her. Begin PT / OT , non-wt bearing on operative leg x 6 weeks. Expect discharge today if she tolerates PT / OT and meets discharge requirements. ASA 81mg BID x 6 weeks. Discussed need for DEXA scan in the future. She has a hx of osteoporosis and is taking Calcium but is uncertain about Vit D. I will check a level today. Encourage Miralax or similar product to prevent constipation. Ice , elevation and wt bearing status discussed with her this AM. Her blood sugars have been slightly elevated. This could be related to the stress of surgery. Recommend f/u with PCP for screening. Will need f/u next week to check her skin and wounds. - Anticoagulation Therapy Anticoagulation: ASA 81 mg PO BID x6 weeks Hospital Course Summary Disclaimer: The visit summary below is not to be considered part of the above Progress Note.
[2017-07-12] MEDS: ASPIRIN 81 MG CHEWABLE TABLET PO SCH (08:28)
[2017-07-12] MEDS: CEFAZOLIN 1 G in NS 100 ML IV SCH (08:29)
--- NOTE | 2017-07-12 09:04 | Discharge Summary ---
Orthopedic Discharge Info Date of admission: 07/11/17 14:12 Anticipated date of discharge: 07/12/17 Primary care physician: Hayden Kerr MD Attending Physician: Too Rivera MD - Discharge Diagnosis (1) Bimalleolar fracture of right ankle Qualifiers: Encounter type: initial encounter Fracture type: closed Qualified Code(s) : S82.841A - Displaced bimalleolar fracture of right lower leg, initial encounter for closed fracture Status: Acute - Procedures Procedures: ORIF right ankle 07/11/17 - Laboratory Result Diagrams: 07/12/17 04:04 07/12/17 04:04 Laboratory: Abnormal lab results 07/12/17 07/12/17 Range/Units 04:04 04:04 RBC 3.77 L (4.00-5.20) M/MM3 Neut % (Auto) 81.2 H (33-66) % Lymph % (Auto) 12.3 L (23-45) % Glucose 129 H (65-110) MG/DL H & H 07/12/17 Range/Units 04:04 Hgb 12.3 (12-16) GM/DL Hct 37.1 (36-46) % Orthopedic Discharge HPI - HPI Comments Rita was out gardening this afternoon and tripped over her hose and fell. She had instant pain of the right ankle with obvious deformity. Transported by EMS to [facility]. Xrays obtained showing bimalleolar fracture dislocation of the ankle. Ortho was consulted, and the right ankle was reduced in the ER by Dr. Rivera. Orthopedic Hospital Course Hospital course: 07/12/17 08:57 Pt was seen in the ER bay and underwent closed reduction and application of a splint on 07/10/17. Due to the severe displacement and concerns for skin breakdown and swelling we kept her overnight. Ice and strict elevation protocol was followed. The following morning her swelling was under control and it was felt pt would be an acceptable candidate to proceed with surgical fixation. After appropriate preoperative clearance and signing of operative consent, the patient was given IV antibiotics, according to protocol. The patient was taken to the operating room and underwent ORIF of the right ankle on 07/11/17. Following surgery, antibiotics were discontinued less than 24 hours according to joint protocol. Aspirin was initiated and SCDs added for DVT prevention. The splint was clean, dry, and intact. Pain control was obtained via multimodal approach. Bowel motivation addressed with scheduled and PRN medications. Early mobilization was initiated through PT services. Discharge arrangements made by a collaborative effort between the patient and Case Management. Remain non-wt bearing on operative leg x 6 weeks. Expect discharge today if she tolerates PT / OT and meets discharge requirements. ASA 81mg BID x 6 weeks for DVT coverage. Discussed need for DEXA scan in the future. She has a hx of osteoporosis and is taking Calcium but is uncertain about Vit D. I will check a level before discharge. Encourage Miralax or similar product to prevent constipation. Ice , elevation and wt bearing status discussed with her this AM. Her blood sugars have been slightly elevated. This could be related to the stress of surgery. Recommend f/u with PCP for screening. Will need f/u next week to check her skin and wounds. Follow-up is scheduled in one week. Discharge instructions given by orthopedic providers and nursing staff at discharge. Discharge condition was good. 07/12/17 09:04 Care extended to > 2 midnight stays?: No Discharge Plan - Med Rec/Dispo Referrals/Follow Up: Chip Osborne PA [Physician Deputy Bailiff] - 07/19/17 10:00 am Emmanuel Instructions: [facility] Postop Instructions Prescriptions: New Aspirin Chewable [ASA] 81 mg PO BID #90 tab.chew Hydrocodone/APAP 7.5/325 [Atco 7.5/325] 1 - 2 tab PO Q4H PRN #60 tab PRN Reason: Pain Peg 3350 238 G Bottle [Miralax] 17 gm PO DAILY #1 bottle Milk of Magnesia [Mom] 30 ml PO DAILY PRN udc PRN Reason: Constipation Continue levothyroxine 75 mcg tablet 75 mcg PO DAILY 90 Days #90 Lipitor (atorvastatin) 10 mg tablet 10 mg PO HS 90 Days #90 - Disposition 01 Discharged Home, Self-Care - Dismissal Complete Discharge Instructions are:: Incomplete
--- NOTE | 2017-07-12 10:50 | Operative Note ---
DATE OF PROCEDURE 07/11/2017 PREOPERATIVE DIAGNOSIS Right bimalleolar ankle fracture. POSTOPERATIVE DIAGNOSIS Right bimalleolar ankle fracture. PROCEDURE Open reduction internal fixation of right bimalleolar ankle fracture. SURGEON Too Rivera MD ELECTROCARDIOGRAPHIC TECHNICIAN Chip Osborne PA-C COMPLICATIONS None. ANESTHESIA General. EBL, FLUIDS AND TOURNIQUET TIME Please see Anesthetic Record. DESCRIPTION OF PROCEDURE Ms. Rios and her right ankle were identified and marked in the preoperative holding area. She was brought back to the operating suite and placed supine on the operating table. She was placed under general anesthesia. The right lower extremity was prepped and draped in my normal sterile fashion. A bump was placed under her hip. Time-out was performed. The leg was exsanguinated and the tourniquet inflated to 250 mmHg. I started with a lateral approach to the distal fibula. Sharp dissection was carried through the skin and subcutaneous tissue down to the fibula. The fracture site was easily identified. Interposed soft tissue was removed. The fracture was oblique. Her bone quality was very poor. It did not hold a [id number] reduction clamp very well, so I instead reduced it and then held it in place with a K-wire. I did not feel that the bone quality would hold a screw. For this reason I next placed a distal fibula locking plate centered on the distal fibula. The first screw was placed just proximal to the fracture site. It did bring the plate down to the bone nicely. Fracture was well reduced on multiple fluoroscopic films. I then proceeded to place the remaining screws in a locking fashion. Four were placed distal to the fracture site and one was placed very near the fracture site and three more were placed proximal to the fracture site. Again, multiple fluoroscopic images confirmed a good reduction. The mortise was well mainlined. She did not open up with external rotation stress. This wound was thoroughly irrigated and then closed by my human resource assistant while I moved to the medial side. A longitudinal incision was made centered over the medial malleolus. Sharp dissection was carried through the subcutaneous tissue and then scissors were used to dissect further to the fracture site. There was again interposed periosteum which was removed. Fracture site was then reduced under direct visualization and held with a point- to-point reduction clamp. I then placed two 40 mm partially-threaded 4.0 cannulated screws in a retrograde fashion over K-wires. Both achieved good bites and the fracture was anatomic on multiple fluoroscopic images. This wound was also thoroughly irrigated and then closed in layers. Sterile dressings were then placed followed by a posterior slab and a stirrup-type splint using bulky cotton. The tourniquet was let down. The patient was allowed to awaken from general anesthesia and taken to the recovery room under the care of Anesthesia. A popliteal block was then placed by Anesthesia. She tolerated the procedure well. There were no complications. JEAN MARIE
[2017-07-12 11:51] VITALS: BP 95/57; PULSE 87; TEMP 96.1; O2SAT 97
== END 2017-07-12 16:30 | disposition home or self-care (01) | DRG 494 ==
LOC: ED 14:54 → SRG 14:54
PROVIDERS: ADMIT Orthopaedic Surgery; ATTEND Orthopaedic Surgery